=== PATIENT | female | born 1960 | race Caucasian/White ===

== ENCOUNTER → 2016-02-26 | Outpatient (REF) | payer BC | LOC: M LAB REF 12:56 | PROVIDERS: ATTEND Surgery | DX: L98.492 Non-pressure chronic ulcer of skin of other sites with fat layer exposed (principal) ==

== ENCOUNTER → 2016-07-22 | Outpatient (REF) | payer BC ==
[2016-07-23 11:41] LABS: ALBUMIN 3.9 GM/DL (3.2-5.2); ALBUMIN/GLOBULIN RATIO 0.95 (1.00-1.93); BILIRUBIN,TOTAL 0.2 MG/DL (0.2-1.0); CALCIUM LEVEL 9.4 MG/DL (8.5-10.1); CREATININE FOR GFR 1.06 MG/DL (0.55-1.02); GLOMERULAR FILTRATION RATE 56.7 (>51); POTASSIUM SERUM 3.6 MEQ/L (3.5-5.1)
== END ==
LOC: M SFHCCLAY 14:31
PROVIDERS: ATTEND Family Medicine
DX: I10 Essential (primary) hypertension (principal)

== ENCOUNTER → 2017-02-27 | Outpatient (REF) | payer BC ==
[2017-02-27 13:21] LABS: BASO # 0.1 10^3/uL (0.0-0.2); EOS # 0.1 10^3/uL (0.0-0.50); EOS % 1.4 % (0.0-3.0); HEMATOCRIT 41.6 % (36.0-47.0); HEMOGLOBIN 13.7 g/dl (12.0-16.0); IMMATURE GRANULOCYTE % 0.3 % (0-0); LYMPH # 2.1 10^3/uL (1.5-4.5); LYMPH % 30.1 % (24.0-44.0); MEAN CORPUSCULAR HEMOGLOBIN 32.4 pg (27.0-33.0); MEAN CORPUSCULAR HGB CONC 32.9 g/dl (32.0-36.5); MEAN CORPUSCULAR VOLUME 98.3 fl (80.0-96.0); MONO # 0.5 10^3/uL (0.0-0.8); MONO % 7.7 % (0.0-5.0); NEUTROPHILS # 4.1 10^3/uL (1.8-7.7); NEUTROPHILS % 59.5 % (36.0-66.0); PLATELET COUNT, AUTOMATED 198 10^3/uL (150-450); RED BLOOD COUNT 4.23 10^6/uL (4.00-5.40); RED CELL DISTRIBUTION WIDTH 13.6 % (11.5-14.5); WHITE BLOOD COUNT 6.9 10^3/uL (4.0-10.0)
[2017-02-27 13:28] LABS: ALBUMIN 4.5 GM/DL (3.2-5.2); ALBUMIN/GLOBULIN RATIO 1.18 (1.00-1.93); ALKALINE PHOSPHATASE 107 U/L (45-117); ALT/SGPT 21 U/L (12-78); ANION GAP 7 MEQ/L (8-16); AST/SGOT 21 U/L (7-37); BILIRUBIN,TOTAL 0.3 MG/DL (0.2-1.0); BLOOD UREA NITROGEN 15 MG/DL (7-18); CALCIUM LEVEL 8.8 MG/DL (8.5-10.1); CARBON DIOXIDE LEVEL 30 MEQ/L (21-32); CHLORIDE LEVEL 104 MEQ/L (98-107); CREATININE FOR GFR 0.98 MG/DL (0.55-1.02); GLOMERULAR FILTRATION RATE > 60.0 (>51); GLUCOSE, FASTING 88 MG/DL (70-105); PHENOBARBITAL LEVEL 24.8 UG/ML (15.0-40.0); POTASSIUM SERUM 3.5 MEQ/L (3.5-5.1); SODIUM LEVEL 141 MEQ/L (136-145); TOTAL PROTEIN 8.3 GM/DL (6.4-8.2)
[2017-03-03 08:10] LABS: ZONISAMIDE LEVEL 8.5 ug/mL (10.0-40.0)
== END ==
LOC: M LABNEURO 11:37
DX: I60.11 Nontraumatic subarachnoid hemorrhage from right middle cerebral artery (principal); G40.219 Localization-related (focal) (partial) symptomatic epilepsy and epileptic syndromes with complex partial seizures, intractable, without status epilepticus

== ENCOUNTER → 2017-03-06 | Outpatient (CLI) | payer BC | LOC: M WHC 11:19 | DX: Z12.31 Encounter for screening mammogram for malignant neoplasm of breast (principal) | CPT/HCPCS: 77067 ==

== ENCOUNTER → 2017-10-15 | Outpatient (REF) | payer BC ==
[2017-10-15 11:36] LABS: HEMATOCRIT 37.7 % (36.0-47.0); HEMOGLOBIN 12.6 g/dl (12.0-15.5); MEAN CORPUSCULAR HEMOGLOBIN 32.1 pg (27.0-33.0); MEAN CORPUSCULAR HGB CONC 33.4 g/dl (32.0-36.5); MEAN CORPUSCULAR VOLUME 96.2 fl (80.0-96.0); PLATELET COUNT, AUTOMATED 175 10^3/uL (150-450); RED BLOOD COUNT 3.92 10^6/uL (4.00-5.40); WHITE BLOOD COUNT 7.8 10^3/uL (4.0-10.0)
[2017-10-15 12:16] LABS: ALBUMIN/GLOBULIN RATIO 0.98 (1.00-1.93); ALKALINE PHOSPHATASE 99 U/L (45-117); ALT/SGPT 21 U/L (12-78); ANION GAP 7 MEQ/L (8-16); AST/SGOT 18 U/L (7-37); BILIRUBIN,TOTAL 0.2 MG/DL (0.2-1.0); BLOOD UREA NITROGEN 25 MG/DL (7-18); CALCIUM LEVEL 9.2 MG/DL (8.5-10.1); CARBON DIOXIDE LEVEL 31 MEQ/L (21-32); CHLORIDE LEVEL 103 MEQ/L (98-107); CREATININE FOR GFR 1.14 MG/DL (0.55-1.30); GLOMERULAR FILTRATION RATE 51.9 (>51); GLUCOSE, FASTING 73 MG/DL (70-100); PHENOBARBITAL LEVEL 23.4 UG/ML (15.0-40.0); POTASSIUM SERUM 3.2 MEQ/L (3.5-5.1); SODIUM LEVEL 141 MEQ/L (136-145); TOTAL PROTEIN 8.1 GM/DL (6.4-8.2)
[2017-10-19 14:12] LABS: ZONISAMIDE LEVEL 25.6 ug/mL (10.0-40.0)
== END ==
LOC: M SFHCCLAY 09:35
DX: I10 Essential (primary) hypertension (principal); M86.9 Osteomyelitis, unspecified
CPT/HCPCS: 80184

== ENCOUNTER → 2018-04-06 | Outpatient (REF) | payer BC ==
[2018-04-06 13:19] LABS: BASO # 0.1 10^3/uL (0.0-0.2); BASO % 0.8 % (0.0-1.0); EOS # 0.2 10^3/uL (0.0-0.50); EOS % 2.1 % (0.0-3.0); HEMOGLOBIN 12.8 g/dl (12.0-15.5); LYMPH # 2.2 10^3/uL (1.5-4.5); LYMPH % 30.8 % (24.0-44.0); MEAN CORPUSCULAR HEMOGLOBIN 32.3 pg (27.0-33.0); MEAN CORPUSCULAR HGB CONC 32.8 g/dl (32.0-36.5); MEAN CORPUSCULAR VOLUME 98.5 fl (80.0-96.0); MONO # 0.5 10^3/uL (0.0-0.8); MONO % 7.5 % (0.0-5.0); NEUTROPHILS # 4.2 10^3/uL (1.8-7.7); NEUTROPHILS % 58.7 % (36.0-66.0); PLATELET COUNT, AUTOMATED 223 10^3/uL (150-450); RED BLOOD COUNT 3.96 10^6/uL (4.00-5.40); WHITE BLOOD COUNT 7.2 10^3/uL (4.0-10.0)
[2018-04-06 13:43] LABS: BILIRUBIN,TOTAL 0.1 MG/DL (0.2-1.0); CALCIUM LEVEL 8.8 MG/DL (8.5-10.1); CREATININE FOR GFR 1.1 MG/DL (0.55-1.30); GLOMERULAR FILTRATION RATE 54.1 (>51); PHENOBARBITAL LEVEL 21.4 UG/ML (15.0-40.0); TOTAL PROTEIN 7.5 GM/DL (6.4-8.2)
== END ==
LOC: M LABNEURO 12:49
PROVIDERS: ATTEND Psychiatry & Neurology Neurology
DX: I60.11 Nontraumatic subarachnoid hemorrhage from right middle cerebral artery (principal); G40.219 Localization-related (focal) (partial) symptomatic epilepsy and epileptic syndromes with complex partial seizures, intractable, without status epilepticus; G43.009 Migraine without aura, not intractable, without status migrainosus

== ENCOUNTER → 2018-11-12 | Outpatient (CLI) | payer BC ==
[~2018-11-12] MED LIST: ISOVUE-370 76% 100ML VIAL (Q9967) As Ordered ONE
--- NOTE | 2018-11-12 10:43 | REPVR ---
PROCEDURE INFORMATION: Exam: CT Angiography Head With Contrast Exam date and time: 11/12/2018 9:32 AM Clinical history: 58 years old, female; Condition or disease; Aneurysm, cerebral; Prior surgery; Surgery date: 6+ months; Surgery type: Aneursym; Additional info: Non traumatic sub subarachnoid hemmorhage TECHNIQUE: Imaging protocol: Computed tomography angiography of the head with intravenous contrast. 3D rendering: MIP and 3D reconstructed images were created and reviewed. Radiation optimization: All CT scans at this facility use at least one of these dose optimization techniques: automated exposure control; mA and/or kV adjustment per patient size (includes targeted exams where dose is matched to clinical indication); or iterative reconstruction. 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 Right anterior cerebral artery: The right A1 is present. Right middle cerebral artery: The right MCA M1 and M2 branches appear to be intact. Right posterior cerebral artery: There is probably origin of the right posterior cerebral artery obscured by the supraclinoid aneurysm clip. There appears to be an intact right P1. Right vertebral artery: Unremarkable. No occlusion or significant stenosis. No aneurysm. Left internal carotid artery: Unremarkable. Intracranial segment is patent with no significant stenosis. No aneurysm. Left anterior cerebral artery: There is a dominant left A1 supply of the anterior cerebral circulation. Left middle cerebral artery: The left MCA trifurcation it is obscured by vascular clip artifact. The left M2 branches appear to be present. Left posterior cerebral artery: There are additional clips in the left posterior fossa and a suboccipital craniotomy is observed. Left vertebral artery: Unremarkable. No occlusion or significant stenosis. No aneurysm. Basilar artery: See Other Vasculature Finding. Other vasculature: The course of the bilateral vertebral arteries is obscured by clip artifact on images 8 and 9. The basilar artery is unremarkable. HEAD: There are multiple aneurysm clips at the periphery of the left middle fossa. IMPRESSION: 1. 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 2. There are multiple clips at the periphery of the left middle fossa. 3. There are additional clips in the left posterior fossa and a suboccipital craniotomy is observed. 4. The course of the bilateral vertebral arteries is obscured by clip artifact on images 8 and 9. The basilar artery is unremarkable. 5. There is probably origin of the right posterior cerebral artery obscured by the supraclinoid aneurysm clip. There appears to be an intact right P1. 6. There is a dominant left A1 supply of the anterior cerebral circulation. 7. The right MCA M1 and M2 branches appear to be intact. 8. The left MCA trifurcation it is obscured by vascular clip artifact. The left M2 branches appear to be present. Electronically signed by: Boni Simms On 11/12/2018 10:43:04 AM
--- NOTE | 2018-11-12 11:31 | REPVR ---
PROCEDURE INFORMATION: Exam: CT Angiography Neck With Contrast Exam date and time: 11/12/2018 9:32 AM Clinical history: 58 years old, female; Condition or disease; Aneurysm, cerebral; Prior surgery; Surgery date: 6+ months; Additional info: Non traumatic subarachnoid hemmorhage TECHNIQUE: Imaging protocol: Computed tomographic angiography images of the neck with intravenous contrast using CT angiography protocol. 3D rendering: MIP and 3D reconstructed images were created and reviewed. Radiation optimization: All CT scans at this facility use at least one of these dose optimization techniques: automated exposure control; mA and/or kV adjustment per patient size (includes targeted exams where dose is matched to clinical indication); or iterative reconstruction. Contrast material: ISOVUE 370; Contrast volume: 75 ml; Contrast route: IV; COMPARISON: CT SOFT TISSUE NECK WITH CONTRAST [id number] 11/30/2014 2:42 PM FINDINGS: VASCULATURE: Right common carotid artery: Unremarkable. No stenosis. No dissection or occlusion. Right internal carotid artery: There is mild calcification of the right internal carotid origin with less than 50% compromise of the lumen. Right external carotid artery: Unremarkable. No occlusion or stenosis of the origin. Right vertebral artery: There is a dominant right vertebral artery with mild calcification at the origin but no evidence of significant stenosis or dissection. Left common carotid artery: There is a vascular stent at the origin of the left common carotid artery. Left internal carotid artery: There is mild calcification of the left internal carotid origin with less than 50% compromise of the lumen. Left external carotid artery: Unremarkable. No occlusion or stenosis of the origin. Left vertebral artery: Unremarkable. No stenosis. No dissection or occlusion. Subclavian arteries: There is extensive calcification and proximal stenosis of the left subclavian artery with a crescent of residual contrast on axial image 47 measuring 1 mm compared to a distal diameter of 7.6 mm suggesting an 85% stenosis. Aorta: There is independent origin of the left vertebral artery from the aorta with moderate plaque of the aorta at the origin associated with some post stenotic dilatation and an estimated stenosis of 60%. NECK: Thyroid: The thyroid gland is normal. Bones/joints: The cervical spine demonstrates mild degenerative changes at multiple levels. Soft tissues: Normal. No significant soft tissue swelling. Lungs: Moderate centrilobular emphysematous changes are present in the lungs. Dental: The patient is edentulous. IMPRESSION: 1. There is mild calcification of the right internal carotid origin with less than 50% compromise of the lumen. 2. There is a dominant right vertebral artery with mild calcification at the origin but no evidence of significant stenosis or dissection. 3. There is a vascular stent at the origin of the left common carotid artery. 4. There is independent origin of the left vertebral artery from the aorta with moderate plaque of the aorta at the origin associated with some post stenotic dilatation and an estimated stenosis of 60%. 5. There is extensive calcification and proximal stenosis of the left subclavian artery with a crescent of residual contrast on axial image 47 measuring 1 mm compared to a distal diameter of 7.6 mm suggesting an 85% stenosis. 6. There is mild calcification of the left internal carotid origin with less than 50% compromise of the lumen. COMMENT: Reference per NASCET criteria for degree of stenosis: Mild: less than 50% stenosis. Moderate: 50-69% stenosis. Severe: 70-94% stenosis. Near occlusion: 95-99% stenosis. Electronically signed by: Boni Simms On 11/12/2018 11:30:59 AM
== END ==
LOC: M RAD 08:44
PROVIDERS: ATTEND Psychiatry & Neurology Neurology
DX: I60.11 Nontraumatic subarachnoid hemorrhage from right middle cerebral artery (principal); G40.219 Localization-related (focal) (partial) symptomatic epilepsy and epileptic syndromes with complex partial seizures, intractable, without status epilepticus; I67.1 Cerebral aneurysm, nonruptured

== ENCOUNTER 2019-01-19 15:06 | Emergency (ER) | payer BC ==
[~2019-01-19] VITALS: Ht 160 cm; Wt 75.0 kg
[2019-01-19 15:06] VITALS: BP 137/80
[2019-01-19] MEDS ORDERED: PHEN32.44 PO ×2 (15:20→15:22)
[2019-01-19] MEDS ORDERED: BISO10TA13 (15:20)
[2019-01-19] MEDS ORDERED: KLOR10TA76 PO (15:20)
[2019-01-19] MEDS ORDERED: RAMI1CAP26 (15:20)
[2019-01-19] MEDS ORDERED: B-122500 PO (15:22)
[2019-01-19] MEDS ORDERED: VENL75CA47 (15:22)
[2019-01-19] MEDS ORDERED: ZONI100C2 (15:23)
[2019-01-19] MEDS ORDERED: ROSU40TA4 (15:23)
[2019-01-19] MEDS ORDERED: HYDR50TAB (15:23)
[2019-01-19] MEDS ORDERED: FOLI1TAB11 (15:23)
[2019-01-19] MEDS ORDERED: CLOP75TA2 (15:23)
[2019-01-19] MEDS ORDERED: CRES40TA PO (15:23)
[2019-01-19] MEDS ORDERED: ERYT1OIN26 OS (15:51)
[2019-01-19] MEDS ORDERED: PRED10TA2 PO (15:51)
== END 2019-01-19 16:02 | disposition home or self-care (01) ==
LOC: M ED 15:06
DX: L23.9 Allergic contact dermatitis, unspecified cause (principal); I10 Essential (primary) hypertension; R56.9 Unspecified convulsions; Z79.899 Other long term (current) drug therapy; Z91.89 Other specified personal risk factors, not elsewhere classified; Z88.8 Allergy status to other drugs, medicaments and biological substances

== ENCOUNTER → 2019-04-14 | Outpatient (REF) | payer BC ==
[~2019-04-14] MED LIST changes: +B-122500 PO; +BISO10TA13; +CLOP75TA2; +CRES40TA PO; +ERYT1OIN26 OS; +FOLI1TAB11; +HYDR50TAB; -ISOVUE-370 76% 100ML VIAL (Q9967) As Ordered ONE; +KLOR10TA76 PO; +PHEN32.44 PO; +PRED10TA2 PO; +RAMI1CAP26; +ROSU40TA4; +VENL75CA47; +ZONI100C17
[2019-04-14 13:58] LABS: HEMATOCRIT 42.5 % (36.0-47.0); HEMOGLOBIN 13.8 g/dl (12.0-15.5); MEAN CORPUSCULAR HEMOGLOBIN 33.3 pg (27.0-33.0); MEAN CORPUSCULAR HGB CONC 32.5 g/dl (32.0-36.5); MEAN CORPUSCULAR VOLUME 102.4 fl (80.0-96.0); PLATELET COUNT, AUTOMATED 207 10^3/uL (150-450); RED BLOOD COUNT 4.15 10^6/uL (4.00-5.40); WHITE BLOOD COUNT 8.1 10^3/uL (4.0-10.0)
[2019-04-14 14:18] LABS: BILIRUBIN,TOTAL 0.2 MG/DL (0.2-1.0); CALCIUM LEVEL 9.3 MG/DL (8.8-10.2); CREATININE FOR GFR 1.16 MG/DL (0.55-1.30); GLOMERULAR FILTRATION RATE 50.7 (>45); PHENOBARBITAL LEVEL 22.9 UG/ML (15.0-40.0); POTASSIUM SERUM 4.3 MEQ/L (3.5-5.1); THYROID STIMULATING HORMONE 2.43 uIU/ML (0.358-3.740); TOTAL PROTEIN 7.9 GM/DL (6.4-8.2)
== END ==
LOC: M SFHCADAM 10:45
PROVIDERS: ATTEND Family Medicine
DX: I10 Essential (primary) hypertension (principal); G40.909 Epilepsy, unspecified, not intractable, without status epilepticus

== ENCOUNTER → 2019-04-27 | Outpatient (CLI) | payer BC ==
--- NOTE | 2019-04-27 11:32 | REPMRS ---
Patient History The patient states she has not had a clinical breast exam in over a year. Family history of breast cancer at age 50 or over in mother, breast cancer at age 50 or over in maternal aunt, breast cancer at age 50 or over in maternal grandmother. Digital Woman Screen Mammo: April 27, 2019 - Exam #: [id number] Bilateral CC and MLO view(s) were taken. Technologist: Marley Corrales, Technologist Prior study comparison: March 06, 2017, digital woman screen mammo performed at [facility]. November 25, 2011, digital woman screen mammo performed at [facility]. 2004, bilateral screening mammogram, performed at [facility]. FINDINGS: The breast tissue is almost entirely fat. There has been no change in the appearance of the mammogram from the prior studies. There is no interval development of dominant mass, architectural distortion, or grouped microcalcification typical of malignancy. 3-D tomosynthesis shows no additional findings. Assessment: BI-RADS/ACR category 1 mammogram. Negative Mammogram. Recommendation Routine screening mammogram of both breasts in 1 year (for women over age 40). This patient's Lifetime Breast Cancer RIsk is estimated at 14.0 %. This mammogram was interpreted with the aid of an FDA-approved computer-aided dectection system. Electronically Signed By: Wilmer Ace MD 04/27/19 [id number]
== END ==
LOC: M WHC 09:21
PROVIDERS: ATTEND Family Medicine
DX: Z12.31 Encounter for screening mammogram for malignant neoplasm of breast (principal); Z80.3 Family history of malignant neoplasm of breast

== ENCOUNTER → 2019-10-05 | Outpatient (REF) | payer BC ==
[~2019-10-05] MED LIST changes: -ERYT1OIN26 OS; +ERYT5OIN25 OS
[2019-11-05 12:05] LABS: HEMATOCRIT 41.3 % (36.0-47.0); HEMOGLOBIN 13.3 g/dl (12.0-15.5); MEAN CORPUSCULAR HEMOGLOBIN 32.6 pg (27.0-33.0); MEAN CORPUSCULAR HGB CONC 32.2 g/dl (32.0-36.5); MEAN CORPUSCULAR VOLUME 101.2 fl (80.0-96.0); PLATELET COUNT, AUTOMATED 203 10^3/uL (150-450); RED BLOOD COUNT 4.08 10^6/uL (4.00-5.40); WHITE BLOOD COUNT 7.4 10^3/uL (4.0-10.0)
[2019-11-18 21:13] LABS: ALBUMIN 3.8 GM/DL (3.2-5.2); ALT/SGPT 17 U/L (12-78); BILIRUBIN,TOTAL 0.2 MG/DL (0.2-1.0); BLOOD UREA NITROGEN 24 MG/DL (7-18); CALCIUM LEVEL 8.8 MG/DL (8.8-10.2); CARBON DIOXIDE LEVEL 29 MEQ/L (21-32); CHLORIDE LEVEL 105 MEQ/L (98-107); CHOLESTEROL LEVEL 195 MG/DL (<200); CREATININE FOR GFR 1.19 MG/DL (0.55-1.30); GLOMERULAR FILTRATION RATE 49.1 (>45); GLUCOSE, FASTING 76 MG/DL (70-100); HDL CHOLESTEROL 39 MG/DL (>40); LDL CHOLESTEROL 108 MG/DL (<100); NON-HDL-C 156 MG/DL; POTASSIUM SERUM 3.8 MEQ/L (3.5-5.1); SODIUM LEVEL 138 MEQ/L (136-145); TOTAL PROTEIN 7.8 GM/DL (6.4-8.2); TRIGLYCERIDES LEVEL 238 MG/DL (<150)
== END ==
LOC: M SFHCCLAY 09:55
PROVIDERS: ATTEND Family Medicine
DX: I10 Essential (primary) hypertension (principal); G40.909 Epilepsy, unspecified, not intractable, without status epilepticus

== ENCOUNTER → 2019-11-21 | Outpatient (CLI) | payer BC ==
[2019-11-21 17:20] LABS: CREATININE FOR GFR 1.42 MG/DL (0.55-1.30)
== END ==
LOC: M WUC 11:55
PROVIDERS: ATTEND Psychiatry & Neurology Neurology
DX: I10 Essential (primary) hypertension (principal)

== ENCOUNTER → 2019-11-23 | Outpatient (CLI) | payer BC ==
[~2019-11-23] MED LIST changes: +ISOVUE-370 76% 100ML VIAL As Ordered ONE
--- NOTE | 2019-11-23 16:59 | REPVR ---
PROCEDURE INFORMATION: Exam: CT Angiography Neck With Contrast Exam date and time: 11/23/2019 3:59 PM Age: 59 years old Clinical indication: Condition or disease; Other: Aneurysm, repair; Prior surgery; Surgery date: 6+ months; Surgery type: Skull removal, aneurysm clips, ; additional info: Cerebral aneurysm, nonruptured TECHNIQUE: Imaging protocol: Computed tomography angiography of the neck with intravenous contrast. 3D rendering (Not supervised by radiologist): MIP and/or 3D reconstructed images were created by the technologist. Radiation optimization: All CT scans at this facility use at least one of these dose optimization techniques: automated exposure control; mA and/or kV adjustment per patient size (includes targeted exams where dose is matched to clinical indication); or iterative reconstruction. Contrast material: ISOVUE 370; Contrast volume: 100 ml; Contrast route: INTRAVENOUS (IV); COMPARISON: CT ANGIO NECK 11/12/2018 9:36 AM FINDINGS: Right common carotid artery: No significant stenosis. No dissection or occlusion. Right internal carotid artery: Atherosclerotic plaques involving the proximal extracranial right internal carotid artery without evidence of hemodynamically significant stenosis (0% stenosis by NASCET criteria). Right external carotid artery: No occlusion or significant stenosis. Right vertebral artery: No significant stenosis. No dissection or occlusion. Left common carotid artery: No significant stenosis. No dissection or occlusion. Left internal carotid artery: Atherosclerotic plaques involving the proximal extracranial left internal carotid artery without evidence of hemodynamically significant stenosis (0% stenosis by NASCET criteria). Left external carotid artery: No occlusion or significant stenosis. Left vertebral artery: No significant stenosis. No dissection or occlusion. Subclavian arteries: Moderate short segment stenosis of the origin of the left subclavian artery. Other vasculature: Mild stenosis of the innominate artery. Bones/joints: No acute fracture. Soft tissues: Unremarkable. Lungs: Mild paraseptal emphysematous changes of the lungs. IMPRESSION: 1. No occlusion or severe stenosis in the arteries of the neck. 2. Other chronic findings, as above. REFERENCES: NASCET CRITERIA. The degree of internal carotid artery stenosis is based on NASCET criteria. Normal is no stenosis. Mild is less than 50% stenosis. Moderate is 50-69% stenosis. Severe is 70% to 99% stenosis. Total occlusion is no detectable patent lumen. Electronically signed by: Emmett Montiel On 11/23/2019 16:58:50 PM
--- NOTE | 2019-11-23 17:05 | REPVR ---
PROCEDURE INFORMATION: Exam: CT Angiography Head With Contrast Exam date and time: 11/23/2019 3:59 PM Age: 59 years old Clinical indication: Condition or disease; Aneurysm, cerebral; Prior surgery; Surgery date: 6+ months; Surgery type: Skull removal, clips, ; additional info: Cerebral aneurysm, nonruptured TECHNIQUE: Imaging protocol: Computed tomography angiography of the head with intravenous contrast. 3D rendering (Not supervised by radiologist): MIP and/or 3D reconstructed images were created by the technologist. Radiation optimization: All CT scans at this facility use at least one of these dose optimization techniques: automated exposure control; mA and/or kV adjustment per patient size (includes targeted exams where dose is matched to clinical indication); or iterative reconstruction. Contrast material: ISOVUE 370; Contrast volume: 100 ml; Contrast route: INTRAVENOUS (IV); COMPARISON: CT ANGIO HEAD 11/12/2018 9:36 AM FINDINGS: ANTERIOR CIRCULATION: Right internal carotid artery: Aneurysm coiling within the region of the origin of the right posterior communicating artery at the right ICA terminus. Intracranial right internal carotid artery is patent. Right middle cerebral artery: Unchanged small 1.5 x 1.5 mm saccular aneurysm projecting inferiorly from the origin of a proximal right M2 branch, off the level of the mid right M1 (best visualized on series 403, image 47). Right anterior cerebral artery: Aneurysm clip within the region of the right anterior cerebral artery. Right anterior cerebral artery is patent. Left internal carotid artery: Intracranial segment is patent with no evidence of hemodynamically significant stenosis. No aneurysm. Left middle cerebral artery: Multiple aneurysm clips within the region of the left M1-M2 junction. No definite evidence of recurrent left MCA aneurysm. Left MCA branches are patent. Left anterior cerebral artery: No occlusion or significant stenosis. No aneurysm. POSTERIOR CIRCULATION: Right vertebral artery: No occlusion or significant stenosis. No aneurysm. Left vertebral artery: Aneurysm clip within the region of the left PICA. No definite evidence of recurrence PICA aneurysm. Left vertebral artery is patent. Basilar artery: No occlusion or significant stenosis. No aneurysm. Right posterior cerebral artery: No occlusion or significant stenosis. No aneurysm. Left posterior cerebral artery: No occlusion or significant stenosis. No aneurysm. IMPRESSION: 1. Unchanged small 1.5 x 1.5 mm saccular aneurysm projecting inferiorly from the origin of a proximal right M2 branch, off the level of the mid right M1. 2. 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 Electronically signed by: Emmett Montiel On 11/23/2019 17:05:23 PM
== END ==
LOC: M RAD 15:18
PROVIDERS: ATTEND Psychiatry & Neurology Neurology
DX: I60.11 Nontraumatic subarachnoid hemorrhage from right middle cerebral artery (principal); I67.1 Cerebral aneurysm, nonruptured; I77.1 Stricture of artery
CPT/HCPCS: 70496; 70498; Q9967

== ENCOUNTER → 2020-07-11 | Outpatient (REF) | payer BC ==
[~2020-07-11] MED LIST changes: -ISOVUE-370 76% 100ML VIAL As Ordered ONE
[2020-07-11 16:18] LABS: HEMATOCRIT 41.9 % (36.0-47.0); HEMOGLOBIN 13.3 g/dl (12.0-15.5); MEAN CORPUSCULAR HEMOGLOBIN 31.6 pg (27.0-33.0); MEAN CORPUSCULAR HGB CONC 31.7 g/dl (32.0-36.5); MEAN CORPUSCULAR VOLUME 99.5 fl (80.0-96.0); PLATELET COUNT, AUTOMATED 210 10^3/uL (150-450); RED BLOOD COUNT 4.21 10^6/uL (4.00-5.40)
[2020-07-11 16:58] LABS: ALBUMIN 3.8 GM/DL (3.2-5.2); BILIRUBIN,TOTAL 0.2 MG/DL (0.2-1.0); CALCIUM LEVEL 9.7 MG/DL (8.8-10.2); CREATININE FOR GFR 1.16 MG/DL (0.55-1.30); GLOMERULAR FILTRATION RATE 50.4 (>45); PHENOBARBITAL LEVEL 21.1 UG/ML (15.0-40.0); POTASSIUM SERUM 4.7 MEQ/L (3.5-5.1); THYROID STIMULATING HORMONE 3.18 uIU/ML (0.358-3.740); TOTAL PROTEIN 7.9 GM/DL (6.4-8.2)
== END ==
LOC: M SFHCCLAY 09:55
PROVIDERS: ATTEND Family Medicine
DX: F32.9 Major depressive disorder, single episode, unspecified (principal); I10 Essential (primary) hypertension; G40.909 Epilepsy, unspecified, not intractable, without status epilepticus

== ENCOUNTER → 2021-02-04 | Outpatient (CLI) | payer BC ==
[~2021-02-04] MED LIST changes: -KLOR10TA76 PO; +POTA-136 PO
--- NOTE | 2021-02-04 12:43 | REP ---
INDICATION: SMOKER COMPARISON: None. TECHNIQUE: Axial noncontrast images from the thoracic inlet to the upper abdomen using low-dose lung screening technique (LDCT). FINDINGS: Lung armendariz are well aerated and relatively symmetric. Mild emphysematous changes are suggested. No acute consolidation, suspicious nodule or mass. No effusion. No pneumothorax. No obvious adenopathy. Mediastinum demonstrates atherosclerotic changes to the thoracic aorta and coronary arteries. IMPRESSION: Mild emphysematous changes. Lung-RADS category 1. Management recommendations include annual low-dose CT surveillance. <Electronically signed by Francois Reyes > 02/04/21 [id number]
== END ==
LOC: M RAD 12:08
PROVIDERS: ATTEND Family Medicine
DX: Z12.2 Encounter for screening for malignant neoplasm of respiratory organs (principal); F17.210 Nicotine dependence, cigarettes, uncomplicated; J43.9 Emphysema, unspecified; I70.0 Atherosclerosis of aorta; I25.10 Atherosclerotic heart disease of native coronary artery without angina pectoris

== ENCOUNTER → 2021-09-26 | Outpatient (REF) | payer MEDICARE ==
[~2021-09-26] MED LIST changes: -ZONI100C17; +ZONI100C67
[2021-09-26 17:45] LABS: BASO # 0.1 10^3/uL (0.0-0.2); BASO % 0.7 % (0.0-1.0); EOS # 0.1 10^3/uL (0.0-0.5); EOS % 1.4 % (0.0-3.0); HEMATOCRIT 35.9 % (36.0-47.0); LYMPH # 2.4 10^3/uL (1.5-5.0); MEAN CORPUSCULAR HEMOGLOBIN 32.9 pg (27.0-33.0); MEAN CORPUSCULAR HGB CONC 33.4 g/dl (32.0-36.5); MEAN CORPUSCULAR VOLUME 98.4 fl (80.0-96.0); MONO # 0.6 10^3/uL (0.0-0.8); MONO % 7.8 % (2.0-8.0); NEUTROPHILS # 4.4 10^3/uL (1.5-8.5); NEUTROPHILS % 57.8 % (36.0-66.0); PLATELET COUNT, AUTOMATED 190 10^3/uL (150-450); RED BLOOD COUNT 3.65 10^6/uL (4.00-5.40); WHITE BLOOD COUNT 7.6 10^3/uL (4.0-10.0)
[2021-09-26 23:08] LABS: ALBUMIN 3.7 GM/DL (3.2-5.2); ALT/SGPT 17 U/L (12-78); BILIRUBIN,TOTAL 0.2 MG/DL (0.2-1.0); BLOOD UREA NITROGEN 27 MG/DL (7-18); CALCIUM LEVEL 9.2 MG/DL (8.8-10.2); CARBON DIOXIDE LEVEL 28 MEQ/L (21-32); CHLORIDE LEVEL 103 MEQ/L (98-107); CREATININE FOR GFR 1.42 MG/DL (0.55-1.30); GLOMERULAR FILTRATION RATE 39.8 (>45); GLUCOSE, FASTING 79 MG/DL (70-100); POTASSIUM SERUM 3.7 MEQ/L (3.5-5.1); SODIUM LEVEL 138 MEQ/L (136-145); TOTAL PROTEIN 7.5 GM/DL (6.4-8.2)
[2021-09-26 23:47] LABS: VITAMIN B12 LEVEL 281 PG/ML (247-911)
== END ==
LOC: M SFHCCLAY 14:34
PROVIDERS: ATTEND Family Medicine
DX: G40.909 Epilepsy, unspecified, not intractable, without status epilepticus (principal); I10 Essential (primary) hypertension

== ENCOUNTER → 2021-10-03 | Outpatient (CLI) | payer MEDICARE ==
[2021-10-03 20:00] LABS: TOTAL 25(OH) VITAMIN D 23.2 NG/ML (30.0-100.0)
== END ==
LOC: M WUC 11:22
PROVIDERS: ATTEND Psychiatry & Neurology Neurology
DX: R26.9 Unspecified abnormalities of gait and mobility (principal); R26.89 Other abnormalities of gait and mobility; D51.9 Vitamin B12 deficiency anemia, unspecified; E53.1 Pyridoxine deficiency; E61.0 Copper deficiency; Z79.899 Other long term (current) drug therapy

== ENCOUNTER → 2021-10-08 | Outpatient (CLI) | payer BC, MEDICARE | LOC: M RAD 13:45 | PROVIDERS: ATTEND Family Medicine | DX: G40.909 Epilepsy, unspecified, not intractable, without status epilepticus (principal); Z86.79 Personal history of other diseases of the circulatory system; I73.9 Peripheral vascular disease, unspecified; G93.89 Other specified disorders of brain; I65.23 Occlusion and stenosis of bilateral carotid arteries ==

== ENCOUNTER → 2022-04-25 | Outpatient (CLI) | payer MEDICARE ==
[2022-04-25 12:40] LABS: TOTAL 25(OH) VITAMIN D 116.1 NG/ML (20.0-100.0)
[2022-04-25 12:41] LABS: FOLATE > 24.00 NG/ML (>5.4)
[2022-04-25 12:43] LABS: VITAMIN B12 LEVEL 386 PG/ML (211-911)
== END ==
LOC: M WUC 08:41
PROVIDERS: ATTEND Psychiatry & Neurology Neurology
DX: E53.8 Deficiency of other specified B group vitamins (principal); E55.9 Vitamin D deficiency, unspecified; E51.9 Thiamine deficiency, unspecified

== ENCOUNTER → 2022-05-06 | Outpatient (CLI) | payer MEDICARE | LOC: M RAD 07:31 | PROVIDERS: ATTEND Family Medicine | DX: Z12.2 Encounter for screening for malignant neoplasm of respiratory organs (principal); F17.210 Nicotine dependence, cigarettes, uncomplicated; J43.9 Emphysema, unspecified; J84.10 Pulmonary fibrosis, unspecified; M47.9 Spondylosis, unspecified ==

== ENCOUNTER → 2022-05-13 | Outpatient (CLI) | payer MEDICARE | LOC: M WHC 13:43 | PROVIDERS: ATTEND Family Medicine | DX: Z12.31 Encounter for screening mammogram for malignant neoplasm of breast (principal) ==

== ENCOUNTER → 2022-08-21 | Outpatient (REF) | payer MEDICARE ==
[2022-08-21 18:47] LABS: HEMATOCRIT 42.2 % (36.0-47.0); HEMOGLOBIN 14.2 g/dl (12.0-15.5); MEAN CORPUSCULAR HEMOGLOBIN 32.9 pg (27.0-33.0); MEAN CORPUSCULAR HGB CONC 33.6 g/dl (32.0-36.5); MEAN CORPUSCULAR VOLUME 97.9 fl (80.0-96.0); PLATELET COUNT, AUTOMATED 218 10^3/uL (150-450); RED BLOOD COUNT 4.31 10^6/uL (4.00-5.40); WHITE BLOOD COUNT 9.2 10^3/uL (4.0-10.0)
[2022-08-21 18:57] LABS: ERYTHROCYTE SEDIMENTATION RATE 54 mm/hr (0-30)
[2022-08-21 19:00] LABS: ALBUMIN 4.3 G/DL (3.2-5.2); BILIRUBIN,TOTAL 0.2 MG/DL (0.3-1.2); CALCIUM LEVEL 9.3 MG/DL (8.3-10.6); CHOLESTEROL RISK RATIO 4.06 (<5); CREATININE FOR GFR 1.42 MG/DL (0.55-1.30); GLOMERULAR FILTRATION RATE 39.6 (>45); HDL CHOLESTEROL 48.9 MG/DL (>40); LDL CHOLESTEROL 110.7 MG/DL (<100); NON-HDL-C 150.1 MG/DL; POTASSIUM SERUM 3.8 MMOL/L (3.5-5.1); TOTAL PROTEIN 7.9 G/DL (5.7-8.2)
== END ==
LOC: M SFHCCLAY 12:13
PROVIDERS: ATTEND Family Medicine
DX: I10 Essential (primary) hypertension (principal); Z72.0 Tobacco use; S01.00XS Unspecified open wound of scalp, sequela; G40.909 Epilepsy, unspecified, not intractable, without status epilepticus; F32.9 Major depressive disorder, single episode, unspecified; I73.9 Peripheral vascular disease, unspecified

== ENCOUNTER → 2022-09-03 | Outpatient (CLI) | payer MEDICARE ==
[2022-09-03 17:52] LABS: CALCIUM LEVEL 9.8 MG/DL (8.3-10.6); CREATININE FOR GFR 1.61 MG/DL (0.55-1.30); GLOMERULAR FILTRATION RATE 34.3 (>45)
== END ==
LOC: M WUC 11:10
PROVIDERS: ATTEND Family Medicine
DX: I10 Essential (primary) hypertension (principal)

== ENCOUNTER → 2022-09-23 | Outpatient (CLI) | payer MEDICARE ==
[2022-09-23 13:10] LABS: CREATININE FOR GFR 1.51 MG/DL (0.55-1.30); GLOMERULAR FILTRATION RATE 36.9 (>45); POTASSIUM SERUM 3.5 MMOL/L (3.5-5.1)
== END ==
LOC: M WUC 08:34
PROVIDERS: ATTEND Family Medicine
DX: I10 Essential (primary) hypertension (principal)

== ENCOUNTER → 2023-03-05 | Outpatient (REF) | payer MEDICARE ==
[2023-03-05 14:11] LABS: CALCIUM LEVEL 8.6 MG/DL (8.3-10.6); CREATININE FOR GFR 1.55 MG/DL (0.55-1.30); GLOMERULAR FILTRATION RATE 35.8 (>45)
== END ==
LOC: M LABWUC 13:49
PROVIDERS: ATTEND Family Medicine
DX: I15.0 Renovascular hypertension (principal)

== ENCOUNTER → 2023-03-06 | Outpatient (CLI) | payer MEDICARE ==
[2023-03-06 10:56] LABS: CALCIUM LEVEL 8.8 MG/DL (8.3-10.6); CREATININE FOR GFR 1.39 MG/DL (0.55-1.30); GLOMERULAR FILTRATION RATE 40.6 (>45); POTASSIUM SERUM 3.9 MMOL/L (3.5-5.1)
== END ==
LOC: M LAB 08:51
PROVIDERS: ATTEND Family Medicine
DX: I10 Essential (primary) hypertension (principal)

== ENCOUNTER → 2023-03-06 | Outpatient (CLI) | payer MEDICARE | LOC: M RAD 08:48 | PROVIDERS: ATTEND Family Medicine | DX: I15.0 Renovascular hypertension (principal); R94.4 Abnormal results of kidney function studies ==

== ENCOUNTER → 2023-05-15 | Outpatient (CLI) | payer MEDICARE | LOC: M WHC 11:10 | PROVIDERS: ATTEND Family Medicine | DX: Z12.31 Encounter for screening mammogram for malignant neoplasm of breast (principal); Z78.0 Asymptomatic menopausal state; M85.89 Other specified disorders of bone density and structure, multiple sites ==

== ENCOUNTER → 2023-06-12 | Outpatient (CLI) | payer MEDICARE ==
[~2023-06-12] MED LIST changes: +B-12100020 PO; +CARV25TA PO; -CLOP75TA2; +CLOP75TA2 PO; +ERGO500029 PO; -FOLI1TAB11; +FOLI1TAB11 PO; +VENL150C43 PO; -ZONI100C67; +ZONI100C67 PO
== END ==
LOC: M RAD 17:06
PROVIDERS: ATTEND Family Medicine
DX: F17.210 Nicotine dependence, cigarettes, uncomplicated (principal); Z53.9 Procedure and treatment not carried out, unspecified reason

== ENCOUNTER → 2023-06-18 | Outpatient (CLI) | payer MEDICARE ==
[2023-06-18 13:57] LABS: HEMATOCRIT 38.3 % (36.0-47.0); HEMOGLOBIN 12.1 g/dl (12.0-15.5); MEAN CORPUSCULAR HEMOGLOBIN 31.9 pg (27.0-33.0); MEAN CORPUSCULAR HGB CONC 31.6 g/dl (32.0-36.5); MEAN CORPUSCULAR VOLUME 101.1 fl (80.0-96.0); PLATELET COUNT, AUTOMATED 130 10^3/uL (150-450); RED BLOOD COUNT 3.79 10^6/uL (4.00-5.40); WHITE BLOOD COUNT 6.1 10^3/uL (4.0-10.0)
[2023-06-18 14:36] LABS: CALCIUM LEVEL 8.9 MG/DL (8.3-10.6); CREATININE FOR GFR 1.51 MG/DL (0.55-1.30); GLOMERULAR FILTRATION RATE 36.9 (>45)
== END ==
LOC: M WUC 09:22
PROVIDERS: ATTEND Family Medicine
DX: I10 Essential (primary) hypertension (principal); F17.210 Nicotine dependence, cigarettes, uncomplicated

== ENCOUNTER → 2023-07-24 | Outpatient (CLI) | payer MEDICARE ==
[~2023-07-24] MED LIST changes: +RAMI10CA64; -RAMI1CAP26; -ROSU40TA4; +ROSU40TA63
== END ==
LOC: M RAD 13:51
PROVIDERS: ATTEND Surgery Vascular Surgery
DX: R09.89 Other specified symptoms and signs involving the circulatory and respiratory systems (principal)

== ENCOUNTER → 2023-07-29 | Outpatient (CLI) | payer MEDICARE ==
[2023-07-29 12:53] LABS: CREATININE FOR GFR 1.52 MG/DL (0.55-1.30); GLOMERULAR FILTRATION RATE 36.5 (>45)
== END ==
LOC: M WUC 09:38
PROVIDERS: ATTEND Physician Assistant
DX: I70.90 Unspecified atherosclerosis (principal)

== ENCOUNTER → 2023-08-10 | Outpatient (CLI) | payer MEDICARE | LOC: M RAD 14:14 | PROVIDERS: ATTEND Family Medicine | DX: Z12.2 Encounter for screening for malignant neoplasm of respiratory organs (principal); F17.210 Nicotine dependence, cigarettes, uncomplicated; J43.9 Emphysema, unspecified ==

== ENCOUNTER 2023-09-16 09:43 | Day surgery (SDC) | payer MEDICARE ==
[~2023-09-16] VITALS: Ht 160 cm; Wt 54.0 kg
[2023-09-16] MEDS ORDERED: LIDOCAINE 2% 100MG/5ML SDV (FOR ANES.) As Ordered ONE (10:13)
[2023-09-16] MEDS ORDERED: propofoL 200 MG/20 ML VIAL As Ordered ONE (10:13)
[2023-09-16] MEDS: NS 1,000 ML IV ONE (11:00)
[2023-09-16 12:05] VITALS: TEMP 97.9
[2023-09-16 12:21] VITALS: BP 146/72; O2SAT 99
== END 2023-09-16 12:36 | disposition home or self-care (01) ==
LOC: M OPP 09:43
PROVIDERS: ATTEND Surgery
DX: R19.5 Other fecal abnormalities (principal); F17.200 Nicotine dependence, unspecified, uncomplicated; Z79.02 Long term (current) use of antithrombotics/antiplatelets; Z79.891 Long term (current) use of opiate analgesic; Z79.899 Other long term (current) drug therapy; Z88.6 Allergy status to analgesic agent; Z91.048 Other nonmedicinal substance allergy status

== ENCOUNTER → 2023-10-01 | Outpatient (CLI) | payer MEDICARE | LOC: M RAD 08:17 | PROVIDERS: ATTEND Physician Assistant | DX: I70.1 Atherosclerosis of renal artery (principal) ==

== ENCOUNTER → 2023-11-19 | Outpatient (REF) | payer MEDICARE ==
[~2023-11-19] MED LIST changes: -ROSU40TA63; +ROSU40TA81
[2023-11-19 19:41] LABS: ALBUMIN 2.8 G/DL (3.2-5.2); ALKALINE PHOSPHATASE 81 U/L (46-116); ALT/SGPT 13 U/L (7.0-40); AST/SGOT 17 U/L (<34); BILIRUBIN,TOTAL < 0.2 MG/DL (0.3-1.2); BLOOD UREA NITROGEN 48 MG/DL (9-23); CALCIUM LEVEL 8.7 MG/DL (8.3-10.6); CARBON DIOXIDE LEVEL 20 MMOL/L (20-31); CHLORIDE LEVEL 108 MMOL/L (98-107); GLOMERULAR FILTRATION RATE 16.7 (>45); GLUCOSE, FASTING 99 MG/DL (74-106); SODIUM LEVEL 135 MMOL/L (136-145); TOTAL PROTEIN 6.1 G/DL (5.7-8.2)
== END ==
LOC: M SFHCCLAY 09:27
PROVIDERS: ATTEND Family Medicine
DX: I73.9 Peripheral vascular disease, unspecified (principal); G40.909 Epilepsy, unspecified, not intractable, without status epilepticus

== ENCOUNTER → 2023-12-15 | Outpatient (CLI) | payer MEDICARE ==
[2023-12-15 20:02] LABS: BASO # 0.1 10^3/uL (0.0-0.2); BASO % 0.7 % (0.0-1.0); EOS # 0.2 10^3/uL (0.0-0.5); EOS % 2.2 % (0.0-3.0); HEMATOCRIT 24.1 % (36.0-47.0); HEMOGLOBIN 7.8 g/dl (12.0-15.5); LYMPH # 1.7 10^3/uL (1.5-5.0); LYMPH % 24.5 % (24.0-44.0); MEAN CORPUSCULAR HEMOGLOBIN 32.9 pg (27.0-33.0); MEAN CORPUSCULAR HGB CONC 32.4 g/dl (32.0-36.5); MEAN CORPUSCULAR VOLUME 101.7 fl (80.0-96.0); MONO # 0.6 10^3/uL (0.0-0.8); MONO % 8.9 % (2.0-8.0); NEUTROPHILS # 4.3 10^3/uL (1.5-8.5); NEUTROPHILS % 63.4 % (36.0-66.0); PLATELET COUNT, AUTOMATED 158 10^3/uL (150-450); RED BLOOD COUNT 2.37 10^6/uL (4.00-5.40); WHITE BLOOD COUNT 6.9 10^3/uL (4.0-10.0)
[2023-12-15 20:24] LABS: PHENOBARBITAL LEVEL 17.5 UG/ML (15.0-40.0)
[2023-12-15 20:26] LABS: ALBUMIN 2.9 G/DL (3.2-5.2); ALKALINE PHOSPHATASE 94 U/L (46-116); ALT/SGPT 11 U/L (7.0-40); AST/SGOT 13 U/L (<34); BILIRUBIN,TOTAL 0.2 MG/DL (0.3-1.2); BLOOD UREA NITROGEN 35 MG/DL (9-23); CALCIUM LEVEL 8.8 MG/DL (8.3-10.6); CARBON DIOXIDE LEVEL 21 MMOL/L (20-31); CHLORIDE LEVEL 108 MMOL/L (98-107); GLOMERULAR FILTRATION RATE 18.8 (>45); GLUCOSE, FASTING 121 MG/DL (74-106); POTASSIUM SERUM 3.9 MMOL/L (3.5-5.1); SODIUM LEVEL 137 MMOL/L (136-145); TOTAL PROTEIN 6.5 G/DL (5.7-8.2)
[2023-12-15 20:29] LABS: VITAMIN B12 LEVEL 465 PG/ML (211-911)
[2023-12-15 20:30] LABS: FOLATE > 24.0 NG/ML (>5.4); TOTAL 25(OH) VITAMIN D 72.4 NG/ML (20.0-100.0)
== END ==
LOC: M WUC 15:19
PROVIDERS: ATTEND Psychiatry & Neurology Neurology
DX: R56.9 Unspecified convulsions (principal); E53.8 Deficiency of other specified B group vitamins

== ENCOUNTER 2023-12-28 10:31 | Emergency (ER) | payer MEDICARE ==
[~2023-12-28] VITALS: Ht 160 cm; Wt 61.4 kg
[2023-12-28] MEDS: LIDOCAINE W/EPINEPHRINE 1% 20ML VIAL SC ONE (13:44)
[2023-12-28 15:59] VITALS: BP 156/88; TEMP 98.2; O2SAT 97
== END 2023-12-28 16:00 | disposition home or self-care (01) ==
LOC: M ED 10:31
DX: S01.81XA Laceration without foreign body of other part of head, initial encounter (principal); W01.198A Fall on same level from slipping, tripping and stumbling with subsequent striking against other object, initial encounter; Y92.89 Other specified places as the place of occurrence of the external cause; Y93.9 Activity, unspecified; Y99.9 Unspecified external cause status; M47.812 Spondylosis without myelopathy or radiculopathy, cervical region; J90 Pleural effusion, not elsewhere classified; I15.0 Renovascular hypertension; N28.1 Cyst of kidney, acquired; N26.1 Atrophy of kidney (terminal); I10 Essential (primary) hypertension; E78.5 Hyperlipidemia, unspecified; G40.909 Epilepsy, unspecified, not intractable, without status epilepticus; I73.9 Peripheral vascular disease, unspecified; Z86.79 Personal history of other diseases of the circulatory system; F17.290 Nicotine dependence, other tobacco product, uncomplicated; Z98.890 Other specified postprocedural states; Z79.899 Other long term (current) drug therapy; Z79.02 Long term (current) use of antithrombotics/antiplatelets; Z91.89 Other specified personal risk factors, not elsewhere classified; Z88.3 Allergy status to other anti-infective agents; Z88.8 Allergy status to other drugs, medicaments and biological substances

== ENCOUNTER → 2023-12-28 | Outpatient (CLI) | payer MEDICARE | LOC: M RAD 09:33 | PROVIDERS: ATTEND Family Medicine | DX: I15.0 Renovascular hypertension (principal); N28.1 Cyst of kidney, acquired; N26.1 Atrophy of kidney (terminal) ==

== ENCOUNTER → 2024-01-29 | Outpatient (REF) | payer MEDICARE ==
[2024-01-29 18:57] LABS: CREATININE,RANDOM URINE 62.8 MG/DL
[2024-01-29 18:58] LABS: TOTAL PROTEIN,RANDOM URINE 166.2 MG/DL (0.0-14.0)
[2024-01-31 05:18] LABS: PROTEIN, TOTAL SO 6.7 g/dL (6.1-8.1)
[2024-02-02 06:42] LABS: ALBUMIN SO 3.5 g/dL (3.8-4.8); ALPHA 1 GLOBULINS SO 0.4 g/dL (0.2-0.3); ALPHA 2 GLOBULINS SO 0.9 g/dL (0.5-0.9); BETA 2 GLOBULIN SO 0.4 g/dL (0.2-0.5); BETA GLOBULIN SO 0.4 g/dL (0.4-0.6); GAMMA GLOBULINS SO 1.1 g/dL (0.8-1.7)
== END ==
LOC: M LAB REF 17:03
PROVIDERS: ATTEND Internal Medicine Nephrology
DX: N17.9 Acute kidney failure, unspecified (principal)

== ENCOUNTER → 2024-02-15 | Outpatient (CLI) | payer MEDICARE | LOC: M PLAIMG 10:07 | PROVIDERS: ATTEND Psychiatry & Neurology Neurology | DX: R29.6 Repeated falls (principal); R53.1 Weakness; M47.9 Spondylosis, unspecified; J91.8 Pleural effusion in other conditions classified elsewhere; M51.26 Other intervertebral disc displacement, lumbar region ==

== ENCOUNTER 2024-03-11 14:36 | Emergency (ER) | payer MEDICARE ==
[~2024-03-11] VITALS: Ht 160 cm; Wt 56.4 kg
[2024-03-11] MEDS: NS (Normal Saline) 0.9% 1,000 ML IV ONE (10:00)
[2024-03-11 15:22] VITALS: TEMP 97.9
[2024-03-11] MEDS: LIDOCAINE 2% 5ML JELLY UROJET TOP ONE (16:10)
[2024-03-11] MEDS: NS 500 ML IV ONE (16:10)
[2024-03-11 17:15] LABS: VENOUS BASE EXCESS -10.9 (-2.0-2.0); VENOUS HCO3 15.4 MMOL/L (23.0-27.0); VENOUS O2 SATURATION 73.4 % (60.0-80.0); VENOUS PARTIAL PRESSURE O2 47.2 mmHg (30.0-50.0); VENOUS PH 7.249 UNITS (7.330-7.430); VENOUS STANDARD HCO3 15.4 MMOL/L; VENOUS TOTAL CO2 16.5 MMOL/L (24.0-28.0)
[2024-03-11 17:23] LABS: BASO % 0.2 % (0.0-1.0); EOS % 0.2 % (0.0-3.0); HEMATOCRIT 31.6 % (36.0-47.0); HEMOGLOBIN 10.1 g/dl (12.0-15.5); LYMPH # 1.1 10^3/uL (1.5-5.0); LYMPH % 12.9 % (24.0-44.0); MEAN CORPUSCULAR HEMOGLOBIN 29.5 pg (27.0-33.0); MEAN CORPUSCULAR VOLUME 92.4 fl (80.0-96.0); MONO # 0.8 10^3/uL (0.0-0.8); MONO % 9.4 % (2.0-8.0); NEUTROPHILS # 6.3 10^3/uL (1.5-8.5); NEUTROPHILS % 76.8 % (36.0-66.0); RED BLOOD COUNT 3.42 10^6/uL (4.00-5.40); WHITE BLOOD COUNT 8.3 10^3/uL (4.0-10.0)
[2024-03-11 17:40] LABS: CK-MB VALUE MASS 23.6 NG/ML (<3.6)
[2024-03-11 17:41] LABS: ETHYL ALCOHOL (ETHANOL) 0.006 % (0.000-0.010)
[2024-03-11 17:43] LABS: ALKALINE PHOSPHATASE 217 U/L (35-104); ALT/SGPT 777 U/L (7.0-40); AST/SGOT 722 U/L (<34); BILIRUBIN,DIRECT 0.3 MG/DL (<0.4); BILIRUBIN,TOTAL 0.5 MG/DL (0.3-1.2); BLOOD UREA NITROGEN 84 MG/DL (9-23); CALCIUM LEVEL 8.2 MG/DL (8.3-10.6); CARBON DIOXIDE LEVEL 17 MMOL/L (20-31); CHLORIDE LEVEL 105 MMOL/L (98-107); CREATININE FOR GFR 2.73 MG/DL (0.55-1.30); GLOMERULAR FILTRATION RATE 18.6 (>45); GLUCOSE, FASTING 84 MG/DL (74-106); POTASSIUM SERUM 4.5 MMOL/L (3.5-5.1); SALICYLATE LEVEL < 3.0 MG/DL (<30); SODIUM LEVEL 135 MMOL/L (136-145); TOTAL PROTEIN 6.8 G/DL (5.7-8.2)
[2024-03-11 17:44] LABS: THYROID STIMULATING HORMONE 9.489 uIU/ML (0.55-4.78)
[2024-03-11 17:47] LABS: CPK CREATINE PHOSPHOKINASE 1188 U/L (34-145); MB/CK RELATIVE INDEX 1.98 (< OR =4)
[2024-03-11 17:50] LABS: KETONE, URINE AUTO RFX NEGATIVE (NEGATIVE); LEUKOCYTE ESTERASE UR AUTO RFX NEGATIVE (NEGATIVE); MUCUS, URINE RFX SMALL (NEGATIVE); NITRITE, URINE AUTO RFX NEGATIVE (NEGATIVE); RBC, URINE AUTO RFX 2 /HPF (0-3); SQUAM EPITHELIAL CELL UR AURFX 1 /HPF (0-6); WBC, URINE AUTO RFX 1 /HPF (0-3)
[2024-03-11 17:52] LABS: PLATELET COUNT, AUTOMATED 58 10^3/uL (150-450)
[2024-03-11 18:03] LABS: AMPHETAMINES LEVEL URINE NEGATIVE (NEGATIVE); BENZODIAZEPINES URINE NEGATIVE (NEGATIVE); CANNABINOIDS URINE NEGATIVE (NEGATIVE); COCAINE METABOLITE URINE NEGATIVE (NEGATIVE); METHADONE URINE NEGATIVE (NEGATIVE); OPIATES URINE NEGATIVE (NEGATIVE); PHENCYCLIDINE URINE NEGATIVE (NEGATIVE)
[2024-03-11 18:05] LABS: BARBITURATES URINE POSITIVE (NEGATIVE)
[2024-03-11 18:51] LABS: MB/CK RELATIVE INDEX 1.82 (< OR =4)
[2024-03-11] MEDS ORDERED: RAMI5CAP60 PO (19:45)
[2024-03-11] MEDS ORDERED: FURO20TA2 PO (19:45)
[2024-03-11] MEDS ORDERED: CHLO125TA PO (19:45)
[2024-03-11] MEDS ORDERED: HOME MED LIST COMPLETE! XX SCH (19:45)
[2024-03-11 20:38] LABS: INR 1.45; PROTHROMBIN TIME 17.9 SECONDS (12.5-14.5)
[2024-03-11 22:06] LABS: HEPATITIS B CORE ANTIBODY IGM NEGATIVE (NEGATIVE); HEPATITIS B SURFACE ANTIGEN NEGATIVE (NEGATIVE); HEPATITIS C VIRUS ABY INDEX 0.04 INDEX (<0.8)
[2024-03-11 23:30] VITALS: BP 153/102; O2SAT 100
== END 2024-03-12 02:45 | disposition short-term general hospital (02) ==
LOC: M ED 14:36
DX: R53.1 Weakness (principal); R74.01 Elevation of levels of liver transaminase levels; B17.9 Acute viral hepatitis, unspecified; I10 Essential (primary) hypertension; K80.20 Calculus of gallbladder without cholecystitis without obstruction; K59.00 Constipation, unspecified; R56.9 Unspecified convulsions; F32.A Depression, unspecified; Z86.79 Personal history of other diseases of the circulatory system; Z79.01 Long term (current) use of anticoagulants; Z79.899 Other long term (current) drug therapy; Z91.89 Other specified personal risk factors, not elsewhere classified; Z88.3 Allergy status to other anti-infective agents; Z88.8 Allergy status to other drugs, medicaments and biological substances; F17.200 Nicotine dependence, unspecified, uncomplicated
CPT/HCPCS: 36415; 70450; 71045; 71250; 74176; 76705; 80048; 80074; 80076; 80143; 80307; 81001; 82077; 82140; 82550; 82553; 82803; 83605; 84443; 84484; 85025; 85049; 85055; 85610; 87040; 93005; 93041; 94760; 99285; G0463

== ENCOUNTER → 2024-03-28 | Outpatient (REF) ==
[~2024-03-28] MED LIST changes: +CHLO125TA PO; +FURO20TA2 PO; +RAMI5CAP60 PO
== END ==
PROVIDERS: ATTEND Physician Assistant
DX: E78.5 Hyperlipidemia, unspecified (principal); Z53.9 Procedure and treatment not carried out, unspecified reason

== ENCOUNTER → 2024-03-29 | Outpatient (REF) | PROVIDERS: ATTEND Physician Assistant | DX: E78.5 Hyperlipidemia, unspecified (principal); Z53.9 Procedure and treatment not carried out, unspecified reason ==